=== PATIENT | male | born 1970 | race Caucasian/White ===

== ENCOUNTER 2021-08-27 23:43 | Inpatient (IN) | payer BC ==
[~2021-08-27] VITALS: Ht 180.3 cm; Wt 91.7 kg
[2021-08-28] VITALS (270 sets, daily range): BP systolic 127–139; BP diastolic 81–99; PULSE 82–98; TEMP 98.2–99.3; O2SAT 86–99
--- NOTE | 2021-08-28 02:30 | NUR ---
PT ARRIVED BY EMS ON BIPAP. TRANSFERRED SELF FROM STRETCHER TO BED. PLACED ON HOSPITAL BIPAP AT 75% FIO2. ARRIVED WITH RIGHT HAND 20 G IV. FLUSHES WELL. TACH[place]NEA IN THE 30'S. DENIES SOA AT THIS TIME. COMPLAINTS OF BACK ACHE FROM LAYING IN BED. THIS RN OFFERED TO CALL AND PT STATED HE WOULD TEXT HER. BELONGINGS INCLUDE CELL PHONE, GLASSES, SHOES, AND SHIRT. PT ORIENTED TO BED AND SURROUNDINGS. CALL LIGHT WITHIN REACH.
[2021-08-28] MEDS ORDERED: LIPITOR 80MG80 MG PO (02:43)
[2021-08-28] MEDS ORDERED: FLOMAX 0.40.4 MG/CAP PO (02:44)
[2021-08-28 06:57] LABS: HEMATOCRIT 45.7 % (42.0-52.0); HEMOGLOBIN 15.1 g/dl (13.5-18.0); MEAN CELL VOLUME 96 fl (80.0-100.0); MEAN CORPUSCULAR HEMOGLOBIN 32 pg (27.0-31.0); MEAN CORPUSCULAR HGB CONC 33 g/dl (33.0-37.0); MEAN PLATELET VOLUME 10.4 fl (7.4-10.4); PLATELET COUNT 411 K/mm3 (130-400); RED BLOOD COUNT 4.78 M/mm3 (4.20-5.60); REDCELL DISTRIBUTION WIDTH-CV 13.5 % (11.5-14.5)
--- NOTE | 2021-08-28 07:15 | NUR ---
RECEIVED REPORT FROM SEMJA PETERSON. PT ON BIPAP 75%. PT RESTING IN BED WATCHING TV. VSS. CALL LIGHT AND URINAL WITHIN REACH.
[2021-08-28 07:16] LABS: CREATININE, serum 0.81 mg/dL (0.72-1.25); POTASSIUM 4.1 mmol/L (3.5-4.5)
--- NOTE | 2021-08-28 07:41 | NUR ---
RT AT BEDSIDE PLACING PT ON AIRVO AT 40L 60%.
[2021-08-28 07:44] LABS: BAND 10 % (0-10); LYMPHOCYTE 10 % (20.0-51.0); METAMYELOCYTE 2 % (0-0); NEUTROPHILS 64 % (42.0-75.2); PLATELET ESTIMATE NORMAL (NORMAL)
[2021-08-28 08:33] LABS: ARTERIAL BLD GAS O2 SATURATION 93.5 % (92-100); ARTERIAL BLD GAS TCO2 CT 22.2; ARTERIAL BLOOD GAS BASE EXCESS -1.1 (-2-2); ARTERIAL BLOOD GAS HCO3 21.3 meq/L (22-26); ARTERIAL BLOOD GAS PCO2 29.5 mmHg (35-45); ARTERIAL BLOOD GAS PO2 70.3 mmHg (80-100); ARTERIAL BLOOD GAS pH 7.48 (7.35-7.45)
--- NOTE | 2021-08-28 10:19 | NUR ---
SW did not see patient due to COVID precautions but did contact patient's , Yancy (pronounced Parag') via [phone]. Patient, and 15 y.o. son live in [place] where patient was fully independent with no oxygen needs, prior to this event. 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 His PCP is Dr. Ng in [place] and he receives his medications from [facility] in [place] without difficulty. Patient's states patient does not have a MPOA but they are interested in completing one. SW will continue to follow to complete this request. Patient to transfer to medical floor. *D/C Plan: discharge home pending medical progress
--- NOTE | 2021-08-28 11:47 | NUR ---
REPORT GIVEN TO SEMAJ DESAI. PT TRANSFERRED VIA WC ON 10L OM. RT TRANSFES UP THE AIRVO AND PLACES BACK ON IT ONCE ARRIVED TO 308. ALL PERSONAL BELONGINGS SENT WITH PT. CALL LIGHT WITHIN REACH. SEMAJ DESAI AWARE OF PT'S ARRIVAL.
--- NOTE | 2021-08-28 21:30 | NUR ---
Patient is resting in bed watching TV, alert and oriented x4, VSS, Airvo in place 40 L and 60% O2. Reports no pain, nausea or vomiting. Assessment completed. Meds provided. No further needs at this time. Call light within reach.
[2021-08-29] VITALS (7 sets, daily range): BP systolic 119–141; BP diastolic 75–91; PULSE 63–79; TEMP 98.1–98.9
[2021-08-29 02:51] LABS: ARTERIAL BLD GAS O2 SATURATION 95.7 % (92-100); ARTERIAL BLD GAS TCO2 CT 21.5; ARTERIAL BLOOD GAS BASE EXCESS -1.4 (-2-2); ARTERIAL BLOOD GAS HCO3 20.6 meq/L (22-26); ARTERIAL BLOOD GAS PCO2 28.1 mmHg (35-45); ARTERIAL BLOOD GAS PO2 80.5 mmHg (80-100); ARTERIAL BLOOD GAS pH 7.48 (7.35-7.45)
--- NOTE | 2021-08-29 06:28 | NUR ---
Patient has been stable along the night. He kept 02 sat over 90s. No sputum production. Some cough. Still at 40L and 67% Shift report will be given to day nurse.
[2021-08-29 07:26] LABS: HEMOGLOBIN 14.3 g/dl (13.5-18.0); MEAN CELL VOLUME 98 fl (80.0-100.0); MEAN CORPUSCULAR HEMOGLOBIN 32 pg (27.0-31.0); MEAN CORPUSCULAR HGB CONC 33 g/dl (33.0-37.0); MEAN PLATELET VOLUME 10.8 fl (7.4-10.4); PLATELET COUNT 462 K/mm3 (130-400); RED BLOOD COUNT 4.51 M/mm3 (4.20-5.60); REDCELL DISTRIBUTION WIDTH-CV 13.5 % (11.5-14.5)
[2021-08-29 08:12] LABS: CALCIUM 8.8 mg/dL (8.4-10.2); CREATININE, serum 0.84 mg/dL (0.72-1.25); POTASSIUM 4.2 mmol/L (3.5-4.5)
[2021-08-29 08:24] LABS: BAND 5 % (0-10); LYMPHOCYTE 6 % (20.0-51.0); METAMYELOCYTE 1 % (0-0); NEUTROPHILS 78 % (42.0-75.2); PLATELET ESTIMATE INCREASED (NORMAL)
--- NOTE | 2021-08-29 08:50 | NUR ---
Pt awake and alert upon entry, in bed. No C/O pain this morning. Pt on AIRVO 40 lpm 70%. Shift assessment complete, left Pt in bed, call light in reach
--- NOTE | 2021-08-29 10:50 | NUR ---
remelt worker completed discharge assessment via phone. Patient reports to living in [place] with his Yancy ([phone]). PCP is Dr. Chavez and the patient utilizes [facility] for perscriptions with no cost difficulty. Patient reports to being fully independent and does not utilize any medical equipment within the home. Does not have a DPOA-HC established and unsure if he wants to at this time. Discharge plan: Home
[2021-08-30 04:04] VITALS: BP 134/85; PULSE 63; TEMP 98.1
[2021-08-30 08:34] VITALS: BP 139/93; PULSE 65; TEMP 98.6
[2021-08-30 11:50] VITALS: BP 119/78; PULSE 71; TEMP 98.5
[2021-08-30 17:07] VITALS: BP 118/69; PULSE 86; TEMP 98.7
--- NOTE | 2021-08-30 18:11 | NUR ---
PT WAS PLEASANT ALL DAY, DENIES PAIN OR ANY COMPLAINTS. PT SLEPT MAJORITY OF DAY. RT INCREASED AEROVO TO 45 L ON 75%.
[2021-08-30 19:36] VITALS: BP 131/81; PULSE 63; TEMP 98.7
[2021-08-31 00:17] VITALS: BP 138/85; PULSE 57; TEMP 98.2
[2021-08-31 03:05] VITALS: BP 123/76; PULSE 56; TEMP 98
[2021-08-31 04:21] LABS: ARTERIAL BLD GAS O2 SATURATION 97.1 % (92-100); ARTERIAL BLD GAS TCO2 CT 22.3; ARTERIAL BLOOD GAS BASE EXCESS -1.5 (-2-2); ARTERIAL BLOOD GAS HCO3 21.4 meq/L (22-26); ARTERIAL BLOOD GAS PCO2 31.4 mmHg (35-45); ARTERIAL BLOOD GAS pH 7.45 (7.35-7.45)
[2021-08-31 08:21] VITALS: BP 130/84; PULSE 57; TEMP 97.8
[2021-08-31 09:00] LABS: HEMATOCRIT 46.9 % (42.0-52.0); HEMOGLOBIN 15.2 g/dl (13.5-18.0); MEAN CELL VOLUME 98 fl (80.0-100.0); MEAN CORPUSCULAR HEMOGLOBIN 32 pg (27.0-31.0); MEAN CORPUSCULAR HGB CONC 32 g/dl (33.0-37.0); MEAN PLATELET VOLUME 10.8 fl (7.4-10.4); PLATELET COUNT 524 K/mm3 (130-400); RED BLOOD COUNT 4.81 M/mm3 (4.20-5.60); REDCELL DISTRIBUTION WIDTH-CV 13.4 % (11.5-14.5)
[2021-08-31 09:17] LABS: C-REACTIVE PROTEIN 0.7 mg/dL (0.00-0.50); CALCIUM 9.2 mg/dL (8.4-10.2); CREATININE, serum 0.88 mg/dL (0.72-1.25); POTASSIUM 4.4 mmol/L (3.5-4.5)
[2021-08-31 09:40] LABS: BAND 4 % (0-10); EOSINOPHIL 2 % (0-4); METAMYELOCYTE 2 % (0-0); MYELOCYTE 1 % (0-0); NEUTROPHILS 58 % (42.0-75.2); NUCLEATED RED BLOOD CELL 1 (0-6); PLATELET ESTIMATE INCREASED (NORMAL); POLYCHROMASIA 1+
[2021-08-31 09:41] LABS: LYMPHOCYTE 18 % (20.0-51.0)
[2021-08-31 12:08] VITALS: BP 117/72; PULSE 69; TEMP 98.6
[2021-08-31 16:44] VITALS: BP 116/72; PULSE 63; TEMP 97.9
--- NOTE | 2021-08-31 17:31 | NUR ---
PT HAD NO COMPLAINTS DURING SHIFT, PLEASANT ALL DAY, LYING IN BED ON AIRVO 45 L 75%. PT PLEASANT ALL SHIFT LONG. REMAINED SAME WITH NO CHANGES.
[2021-08-31 20:34] VITALS: BP 125/76; PULSE 63; TEMP 98.3
[2021-09-01 00:31] VITALS: BP 118/65; PULSE 61; TEMP 97.4
[2021-09-01 04:21] VITALS: BP 127/85; PULSE 60; TEMP 97.6
[2021-09-01 07:22] LABS: HEMATOCRIT 47.7 % (42.0-52.0); HEMOGLOBIN 15.4 g/dl (13.5-18.0); MEAN CELL VOLUME 99 fl (80.0-100.0); MEAN CORPUSCULAR HEMOGLOBIN 32 pg (27.0-31.0); MEAN CORPUSCULAR HGB CONC 32 g/dl (33.0-37.0); MEAN PLATELET VOLUME 10.6 fl (7.4-10.4); PLATELET COUNT 552 K/mm3 (130-400); RED BLOOD COUNT 4.81 M/mm3 (4.20-5.60); REDCELL DISTRIBUTION WIDTH-CV 13.4 % (11.5-14.5)
[2021-09-01 07:43] LABS: ALBUMIN 2.8 gm/dL (3.5-5.0); BILIRUBIN,TOTAL 0.4 mg/dL (0.2-1.2); CALCIUM 9.5 mg/dL (8.4-10.2); CREATININE, serum 0.93 mg/dL (0.72-1.25); POTASSIUM 4.4 mmol/L (3.5-4.5); TOTAL PROTEIN 6.3 gm/dL (6.2-8.1)
[2021-09-01 07:47] VITALS: BP 124/80; PULSE 66; TEMP 97.7
[2021-09-01 08:08] LABS: EOSINOPHIL 1 % (0-4); METAMYELOCYTE 4 % (0-0); PLATELET ESTIMATE INCREASED (NORMAL)
[2021-09-01 08:10] LABS: BAND 6 % (0-10); LYMPHOCYTE 20 % (20.0-51.0); NEUTROPHILS 59 % (42.0-75.2)
--- NOTE | 2021-09-01 09:25 | NUR ---
Patient laying in bed watching television upon entering the room. Patient currently on airvo at 45L; 51%. Breakfast was delivered to the patient by this RN. All morning medications were administered and shift assessment completed. Patient had no complaints and was getting up to use the restroom as this RN left the room.
[2021-09-01 12:00] VITALS: BP 136/77; PULSE 70; TEMP 97.9
[2021-09-01 15:50] VITALS: BP 122/78; PULSE 74; TEMP 98
--- NOTE | 2021-09-01 18:16 | NUR ---
Patient has done well and has not had any complaints. Remains on 45L via airvo, independent in room.
[2021-09-01 19:53] VITALS: BP 138/83; PULSE 74; TEMP 99
[2021-09-02] VITALS (7 sets, daily range): BP systolic 124–148; BP diastolic 54–91; PULSE 63–82; TEMP 98.1–98.8
[2021-09-02 07:48] LABS: HEMATOCRIT 51.8 % (42.0-52.0); HEMOGLOBIN 15.8 g/dl (13.5-18.0); MEAN CORPUSCULAR HEMOGLOBIN 32 pg (27.0-31.0); MEAN CORPUSCULAR HGB CONC 31 g/dl (33.0-37.0); MEAN PLATELET VOLUME 10.8 fl (7.4-10.4); PLATELET COUNT 490 K/mm3 (130-400); RED BLOOD COUNT 4.92 M/mm3 (4.20-5.60); REDCELL DISTRIBUTION WIDTH-CV 13.7 % (11.5-14.5)
[2021-09-02 07:49] LABS: MEAN CELL VOLUME 105 fl (80.0-100.0)
[2021-09-02 07:59] LABS: C-REACTIVE PROTEIN 0.2 mg/dL (0.00-0.50); CALCIUM 9.3 mg/dL (8.4-10.2); CREATININE, serum 0.88 mg/dL (0.72-1.25); POTASSIUM 3.9 mmol/L (3.5-4.5)
--- NOTE | 2021-09-02 09:54 | NUR ---
Patient in bed upon entering the room. He remains on airvo at 35L. Patient would like to take a shower today if he is placed on a regular HF NC. RT is hoping to achieve this today, but O2 sats are only 90-91% on the 35L.
--- NOTE | 2021-09-02 10:24 | NUR ---
PLACED PT ON 10 LPM HFNC 90% SPO2. RN NOTIFIED
--- NOTE | 2021-09-02 18:22 | NUR ---
Patient has not had any complaints today. Transition from Airvo to high flow NC has been successful.
[2021-09-03 03:59] VITALS: BP 131/74; PULSE 68; TEMP 98.5
[2021-09-03 07:09] LABS: HEMATOCRIT 47.5 % (42.0-52.0); HEMOGLOBIN 15.8 g/dl (13.5-18.0); MEAN CORPUSCULAR HEMOGLOBIN 32 pg (27.0-31.0); MEAN CORPUSCULAR HGB CONC 33 g/dl (33.0-37.0); MEAN PLATELET VOLUME 11.1 fl (7.4-10.4); PLATELET COUNT 500 K/mm3 (130-400); RED BLOOD COUNT 5.01 M/mm3 (4.20-5.60); REDCELL DISTRIBUTION WIDTH-CV 13.3 % (11.5-14.5)
[2021-09-03 07:10] LABS: MEAN CELL VOLUME 95 fl (80.0-100.0)
[2021-09-03 08:25] VITALS: BP 135/93; PULSE 66; TEMP 98
[2021-09-03 08:46] LABS: BAND 2 % (0-10); LYMPHOCYTE 13 % (20.0-51.0); NEUTROPHILS 78 % (42.0-75.2); PLATELET ESTIMATE INCREASED (NORMAL)
--- NOTE | 2021-09-03 09:28 | NUR ---
Pt. progressing w/ plan of care. AM meds administered and assessment complete. Pt. appears to be sad. Pt. denies any issues at this time but reports he is bored in the room. Pt. is on 15L hi-yamilet nasal cannula, O2 sat 94% this AM. Pt. resting in bed, alert, denies feelings of shortness of breath. Needs addressed, call light and belongings in reach.
[2021-09-03 11:46] VITALS: BP 146/67; PULSE 66; TEMP 98.2
--- NOTE | 2021-09-03 13:27 | NUR ---
This RN has been able to safely titrate pt.'s oxygen today. Pt. is now on 10L O2 hi-yamilet nasal cannula and O2 sat is at 96%. Pt. reports feeling ok. Needs met, call light in reach.
--- NOTE | 2021-09-03 13:32 | NUR ---
Supervisor [employer] collaborated with RNJayashree who advised patient has been independent in his room.
[2021-09-03 17:22] VITALS: BP 129/80; PULSE 67; TEMP 98.3
[2021-09-03 20:10] VITALS: BP 136/70; PULSE 73; TEMP 98.5
[2021-09-03 23:46] VITALS: BP 119/80; PULSE 50; TEMP 98.5
[2021-09-04 03:48] VITALS: BP 126/81; PULSE 59; TEMP 98.2
[2021-09-04 05:00] LABS: HEMATOCRIT 47.6 % (42.0-52.0); HEMOGLOBIN 15.6 g/dl (13.5-18.0); MEAN CELL VOLUME 96 fl (80.0-100.0); MEAN CORPUSCULAR HEMOGLOBIN 31 pg (27.0-31.0); MEAN CORPUSCULAR HGB CONC 33 g/dl (33.0-37.0); MEAN PLATELET VOLUME 11.1 fl (7.4-10.4); PLATELET COUNT 470 K/mm3 (130-400); RED BLOOD COUNT 4.98 M/mm3 (4.20-5.60); REDCELL DISTRIBUTION WIDTH-CV 13.4 % (11.5-14.5)
[2021-09-04 05:35] LABS: EOSINOPHIL 1 % (0-4); LYMPHOCYTE 21 % (20.0-51.0); METAMYELOCYTE 1 % (0-0); NEUTROPHILS 71 % (42.0-75.2); PLATELET ESTIMATE NORMAL (NORMAL)
[2021-09-04 05:56] LABS: CALCIUM 9.3 mg/dL (8.4-10.2); CREATININE, serum 0.81 mg/dL (0.72-1.25); POTASSIUM 4.4 mmol/L (3.5-4.5)
[2021-09-04 08:33] VITALS: BP 142/83; PULSE 58; TEMP 98.8
[2021-09-04 11:00] VITALS: BP 138/75; PULSE 60; TEMP 98.6
[2021-09-04 15:39] VITALS: BP 153/90; PULSE 72; TEMP 98.2
--- NOTE | 2021-09-04 18:15 | NUR ---
Pt. had a good day today. Pt. is now on 2L supplemental O2. Pt. showered and denies pain. Pt. sitting upright in bed, call light and belongings in reach.
[2021-09-04 20:00] VITALS: BP 154/78; PULSE 72; TEMP 98.3
[2021-09-04 22:21] VITALS: BP 141/91; PULSE 62; TEMP 98.2
[2021-09-05 04:59] VITALS: BP 129/90; PULSE 65; TEMP 97.6
[2021-09-05 08:51] VITALS: BP 109/83; PULSE 61; TEMP 98.2
[2021-09-05 09:16] LABS: HEMOGLOBIN 17.2 g/dl (13.5-18.0); MEAN CELL VOLUME 100 fl (80.0-100.0); MEAN CORPUSCULAR HEMOGLOBIN 31 pg (27.0-31.0); MEAN CORPUSCULAR HGB CONC 31 g/dl (33.0-37.0); MEAN PLATELET VOLUME 11.2 fl (7.4-10.4); RED BLOOD COUNT 5.49 M/mm3 (4.20-5.60); REDCELL DISTRIBUTION WIDTH-CV 13.6 % (11.5-14.5)
--- NOTE | 2021-09-05 09:18 | NUR ---
Scheduled medications given. Shift assessment preformed. Patient currently requiring 2 L of O2 via nasal cannula. Patient denies any pain, discomfort, SOA, N/V/D, or further needs at this time. Call light in reach. VSS. Patient A&O.
[2021-09-05 09:21] LABS: HEMATOCRIT 54.8 % (42.0-52.0); PLATELET COUNT 334 K/mm3 (130-400)
[2021-09-05 09:46] LABS: CALCIUM 9.8 mg/dL (8.4-10.2); CREATININE, serum 0.79 mg/dL (0.72-1.25); POTASSIUM 4.3 mmol/L (3.5-4.5)
[2021-09-05 09:53] LABS: LYMPHOCYTE 17 % (20.0-51.0); NEUTROPHILS 77 % (42.0-75.2)
[2021-09-05 09:54] LABS: HYPOCHROMIA 2+
[2021-09-05 09:55] LABS: PLATELET ESTIMATE NORMAL (NORMAL)
--- NOTE | 2021-09-05 11:41 | NUR ---
Patient meets discharge criteria. Discharge education/instructions given. IV DC'd, catheter intact, no signs of phelbitis. Patient denies any pain, discomfort, SOA, or further needs at this time. All questions answered. Call light in reach.
--- NOTE | 2021-09-05 12:51 | NUR ---
Patient ambulated from building escorted by [facility] Staff. transporting home.
--- NOTE | 2021-09-05 13:02 | NUR ---
Clothes Drier Assembler reviewed exercise oximetry and patient will not need home oxygen upon discharge. Patient to discharge home today.
== END 2021-09-05 12:52 | disposition home or self-care (01) | DRG 177 ==
LOC: IMCU 23:43 → ICU 08-28 02:13 → MEDICAL 08-28 02:13
PROVIDERS: Internal Medicine; Internal Medicine Pulmonary Disease; Student in an Organized Health Care Education/Training Program; ADMIT Student in an Organized Health Care Education/Training Program
PROC: 5A09457 Assistance with Respiratory Ventilation, 24-96 Consecutive Hours, Continuous Positive Airway Pressure (ICD-10-PCS; principal; 2021-08-28)
PROC: XW033E5 Introduction of Remdesivir Anti-infective into Peripheral Vein, Percutaneous Approach, New Technology Group 5 (ICD-10-PCS; 2021-08-28)
DX: U07.1 COVID-19 (principal); J96.01 Acute respiratory failure with hypoxia; J12.82 Pneumonia due to coronavirus disease 2019; N40.0 Benign prostatic hyperplasia without lower urinary tract symptoms; E78.5 Hyperlipidemia, unspecified; D75.839 Thrombocytosis, unspecified; Z73.0 Burn-out
CPT/HCPCS: 99223-AI; 99231-AI; 99232-AI; 99233-AI; 99239; J0456; J0696; J1100; J1650; J7050; J7120; J8540